=== PATIENT | male | born 1945 | race Hispanic/Latino ===

== ENCOUNTER → 2017-09-29 | Outpatient (CLI) | payer MEDICARE ==
[~2017-09-29] MED LIST: CEFEPIME-D1 GM/50 ML IVP; FLAGYL250 MG PO; HYDRALAZINE HCL25 MG PO; METFORMIN HCL850 MG PO; NICOTINE PATCH1 EAC5 TD; PANTOPRAZOLE SO40 MG PO; PLAVIX75 MG PO; SENNA8.6 M1 PO; SIMVASTATIN40 MG PO
--- NOTE | 2017-09-29 11:28 | Diagnostic Imaging Report ---
PROCEDURE:ABDOMINAL ULTRASOUND COMPARISON:None. INDICATIONS:DIABETES/HTN/ EPIGASTRIC PAIN TECHNIQUE: Drew-scale and color sonographic images were obtained of the abdomen in transverse and sagittal planes. FINDINGS: Liver: 11.8 cm in length in right midclavicular line. The echotexture is mildly increased. No masses. Main portal vein: 0.9 cm, hepatopetal flow Gallbladder: Present and is normal. No gallbladder wall thickening, calcified gallstone, or pericholecystic fluid. Common Bile Duct: 0.3 Sonographic Root's sign: Negative Right kidney: 10.4 cm in length. Left kidney: 9.7 cm in length. The echotexture is normal. No evidence of mass or hydronephrosis in either kidney. Spleen: 8.8 cm in length. The echotexture is normal. No evidence of mass. A splenule is present at the lower pole. Pancreas: The visualized portions are unremarkable. Inferior vena cava: Patent Aorta: Within normal limits Ascites: None CONCLUSION: Increased echotexture of the liver suggestive of hepatocellular dysfunction, most commonly steatosis. The remainder of the visualized abdomen is normal. Dictated by: Nick Salazar M.D. on 09/29/2017 at 11:38 Electronically approved by: Nick Salazar M.D. on 09/29/2017 at 11:38
== END ==
LOC: US 08:41
PROVIDERS: ATTEND Internal Medicine Gastroenterology
DX: R10.13 Epigastric pain (principal); E11.9 Type 2 diabetes mellitus without complications; I10 Essential (primary) hypertension; E66.9 Obesity, unspecified; Z71.3 Dietary counseling and surveillance
CPT/HCPCS: 76700

== ENCOUNTER → 2020-07-10 | Day surgery (SDC) | payer MEDICARE ==
[2020-07-05 14:03] LABS: BASOPHILS # (AUTO) 0.1 (0.0-0.1); EOSINOPHILS # (AUTO) 0.4 (0.0-0.4); EOSINOPHILS % 5.1 % (0.0-6.0); HEMATOCRIT 41.5 % (38.2-49.6); HEMOGLOBIN 13.9 g/dL (14.0-18.0); LYMPHOCYTES # (AUTO) 2.1 (1.0-3.2); LYMPHOCYTES % 29.8 % (18.0-39.1); MEAN CORPUSCULAR HEMOGLOBIN 31.7 pg (28-32); MEAN CORPUSCULAR HGB CONC 33.5 g/dL (31-35); MEAN CORPUSCULAR VOLUME 94.7 fL (81-99); MONOCYTES # (AUTO) 0.5 (0.2-0.8); MONOCYTES % 7.3 % (4.4-11.3); NEUTROPHILS % 56.5 % (38.7-80.0); PLATELET COUNT 143 x10e3/uL (140-360); RED BLOOD COUNT 4.38 x10e6/uL (4.3-5.7); RED CELL DISTRIBUTION WIDTH 13.3 % (11.7-14.4)
[2020-07-05 14:24] LABS: ALANINE AMINOTRANSFERASE 19 IU/L (0-55); ALBUMIN/GLOBULIN RATIO 1.7 (0.8-2.0); ALKALINE PHOSPHATASE 81 IU/L (40-150); BLOOD UREA NITROGEN 15 mg/dL (7-26); BUN/CREATININE RATIO 15 (6-25); CALCIUM 8.7 mg/dL (8.4-10.2); CARBON DIOXIDE 26 mmol/L (22-29); CHLORIDE 107 mmol/L (98-107); CREATININE, SERUM 1.02 mg/dL (0.72-1.25); EST GLOMERULAR FILTRATION RATE > 60 ML/MIN (60-); GLUCOSE 170 mg/dL (74-118); SODIUM 142 mmol/L (136-145)
[2020-07-10] VITALS (10 sets, daily range): BP systolic 142–174; BP diastolic 69–85
[~2020-07-10] VITALS: Ht 165.1 cm; Wt 79.4 kg
[~2020-07-10] MED LIST changes: +ALPRAZOLAM 0.5 MG TAB ONE; +ASPIRIN81 MG; +ATORVASTATIN CA20 MG PO; +DIPHENHYDRAMINE HCL 25 MG CAP ONE; +FAMOTIDINE20 MG PO; +FENTANYL CITRATE/PF 100MCG/2 ML INJ ONE; +GLIMEPIRIDE1 MG PO; +HEPARIN SOD/SOD CHLORIDE 2,000 ML ONE; +IOPAMIDOL 300MG/ML 100 ML INFUS..BTL IV ONE; +IOPAMIDOL 370 MG/ML 200 ML INFUS..BTL INJ ONE; +LABETALOL HCL 0 ML ONE; +LIDOCAINE HCL 2% LOCAL 20 ML VIAL ONE; +LISINOPRIL5 MG PO; +METFORMIN HCL500 MG PO; +METOCLOPRAMIDE10 MG PO; +MIDAZOLAM HCL 2 MG/2 ML VIAL ONE; +SODIUM CHLORIDE 0.9% 1000ML 1,000 ML ONE
== END | disposition home or self-care (01) ==
LOC: CATH LAB 10:05
PROVIDERS: ATTEND Internal Medicine Interventional Cardiology
DX: I25.118 Atherosclerotic heart disease of native coronary artery with other forms of angina pectoris (principal); I25.82 Chronic total occlusion of coronary artery; Z01.812 Encounter for preprocedural laboratory examination; Z20.828 Contact with and (suspected) exposure to other viral communicable diseases; I70.203 Unspecified atherosclerosis of native arteries of extremities, bilateral legs
CPT/HCPCS: 36415; 75630; 76937; 80053; 85025; 93458; C1769 ×3; J2001; J2250; J3010; J7030; Q9967 ×2; U0002; 99152; 99153

== ENCOUNTER 2024-07-02 09:37 | Emergency (ER) | payer MEDICARE ==
[~2024-07-02] VITALS: Ht 165.1 cm; Wt 79.4 kg
[~2024-07-02 09:37] MED LIST changes: -ALPRAZOLAM 0.5 MG TAB ONE; -DIPHENHYDRAMINE HCL 25 MG CAP ONE; -FENTANYL CITRATE/PF 100MCG/2 ML INJ ONE; -HEPARIN SOD/SOD CHLORIDE 2,000 ML ONE; -IOPAMIDOL 300MG/ML 100 ML INFUS..BTL IV ONE; -IOPAMIDOL 370 MG/ML 200 ML INFUS..BTL INJ ONE; -LABETALOL HCL 0 ML ONE; -LIDOCAINE HCL 2% LOCAL 20 ML VIAL ONE; -MIDAZOLAM HCL 2 MG/2 ML VIAL ONE; -SODIUM CHLORIDE 0.9% 1000ML 1,000 ML ONE; +ULTRAM 50MG50 MG PO
[2024-07-02 09:50] VITALS: PULSE 57; RESP 19; TEMP 97.7; O2SAT 100
[2024-07-02 10:33] LABS: BASOPHILS # (AUTO) 0.1 (0.0-0.1); BASOPHILS % 0.9 % (0.0-1.0); EOSINOPHILS # (AUTO) 0.2 (0.0-0.4); EOSINOPHILS % 3.7 % (0.0-6.0); HEMOGLOBIN 15.9 g/dL (14.0-18.0); LYMPHOCYTES # (AUTO) 1.6 (1.0-3.2); LYMPHOCYTES % 28.1 % (18.0-39.1); MEAN CORPUSCULAR HEMOGLOBIN 32.4 pg (28-32); MEAN CORPUSCULAR HGB CONC 33.1 g/dL (31-35); MONOCYTES # (AUTO) 0.4 (0.2-0.8); MONOCYTES % 7.2 % (4.4-11.3); NEUTROPHILS # (AUTO) 3.4 (2.1-6.9); NEUTROPHILS % 59.7 % (38.7-80.0); PLATELET COUNT 147 x10e3/uL (140-360); RED CELL DISTRIBUTION WIDTH 13.5 % (11.7-14.4)
[2024-07-02 10:45] LABS: BILIRUBIN,URINE NEGATIVE (NEGATIVE); CLARITY,URINE CLEAR (CLEAR); COLOR,URINE YELLOW (YELLOW); GLUCOSE, URINE NEGATIVE (NEGATIVE); KETONES,URINE NEGATIVE (NEGATIVE); LEUKOCYTE ESTERASE ,URINE NEGATIVE (NEGATIVE); NITRITE,URINE NEGATIVE (NEGATIVE); PH,URINE 7 (5 - 7); PROTEIN,URINE DIPSTICK 2+ (NEGATIVE); URINE UROBILINOGEN 0.2 mg/dL (0.2 - 1)
[2024-07-02 10:48] LABS: ALBUMIN/GLOBULIN RATIO 1.4 (0.8-2.0); ANION GAP 16.5 mmol/L (8-16); CREATININE, SERUM 1.3 mg/dL (0.72-1.25); INR 0.91; PROTHROMBIN TIME 12.8 seconds (11.9-14.5); TOTAL PROTEIN 6.8 g/dL (6.5-8.1)
[2024-07-02 10:49] LABS: PARTIAL THROMBOPLASTIN TIME 26.9 seconds (23.8-35.5)
[2024-07-02 10:50] LABS: POTASSIUM 5.5 mmol/L (3.5-5.1)
[2024-07-02 10:54] LABS: TROPONIN I 0.024 ng/mL (0-0.300)
[2024-07-02 10:57] LABS: BACTERIA,URINE RARE /HPF; EPITHELIAL CELLS,URINE RARE /LPF; RBC,URINE 0-5 /HPF (0-5); WBC,URINE (MAN) 0-5 /HPF (0-5)
[2024-07-02] MEDS ORDERED: IOPAMIDOL 370 MG/ML 100 ML INFUS..BTL INJ ONE (11:09)
[2024-07-02] MEDS: SODIUM CHLORIDE 0.9% 1000ML 1,000 ML IV ONE (11:53)
[2024-07-02 12:56] VITALS: BP 198/72
[2024-07-02] MEDS: NICARDIPINE 20MG/200ML PREMIX 200 ML IV SCH (12:56)
== END 2024-07-02 13:40 | disposition other institution (70) ==
LOC: ER 09:50
DX: S06.5X0A Traumatic subdural hemorrhage without loss of consciousness, initial encounter (principal); R07.89 Other chest pain; W06.XXXA Fall from bed, initial encounter; Y92.89 Other specified places as the place of occurrence of the external cause; R94.31 Abnormal electrocardiogram [ECG] [EKG]
CPT/HCPCS: 36415; 70450; 71260; 72125; 74177; 80053; 81001; 82550; 84484; 85025; 85610; 85730; 93005; 99284; J7030; Q9967

== ENCOUNTER → 2025-03-15 | Outpatient (REF) | payer MEDICARE | LOC: CARD 08:55 | PROVIDERS: ATTEND Internal Medicine Infectious Disease | DX: E11.621 Type 2 diabetes mellitus with foot ulcer (principal); L97.511 Non-pressure chronic ulcer of other part of right foot limited to breakdown of skin; S81.802A Unspecified open wound, left lower leg, initial encounter | CPT/HCPCS: 93922; 93925 ==

== ENCOUNTER → 2025-03-17 | Outpatient (RCR) | payer MEDICARE | END | disposition home or self-care (01) | LOC: WCC 03-10 15:30 | PROVIDERS: ATTEND Internal Medicine Infectious Disease | DX: E11.621 Type 2 diabetes mellitus with foot ulcer (principal); S81.802A Unspecified open wound, left lower leg, initial encounter; L97.511 Non-pressure chronic ulcer of other part of right foot limited to breakdown of skin; R60.0 Localized edema ==

== ENCOUNTER → 2025-03-22 | Outpatient (REF) | payer MEDICARE | LOC: RAD 11:06 | PROVIDERS: ATTEND Internal Medicine Infectious Disease | DX: E11.621 Type 2 diabetes mellitus with foot ulcer (principal); L97.511 Non-pressure chronic ulcer of other part of right foot limited to breakdown of skin; S81.802A Unspecified open wound, left lower leg, initial encounter ==

== ENCOUNTER → 2025-03-31 | Outpatient (REF) | payer MEDICARE | LOC: DX 11:58 | PROVIDERS: ATTEND Internal Medicine Infectious Disease | DX: Z45.2 Encounter for adjustment and management of vascular access device (principal); S81.802A Unspecified open wound, left lower leg, initial encounter | CPT/HCPCS: 36569; 71045 ==

== ENCOUNTER 2025-04-11 11:09 | Outpatient (RCR) | payer MEDICARE ==
[2025-03-24 16:04] LABS: BASOPHILS % 0.6 % (0.0-1.0); EOSINOPHILS % 4.1 % (0.0-6.0); LYMPHOCYTES % 22.1 % (18.0-39.1); MONOCYTES % 9.6 % (4.4-11.3); NEUTROPHILS % 63.1 % (38.7-80.0); RED CELL DISTRIBUTION WIDTH 13.5 % (11.7-14.4)
[2025-03-24 16:25] LABS: EST GLOMERULAR FILTRATION RATE 32.0 ML/MIN (>=60)
[2025-04-11] MEDS ORDERED: COLLAGENASE OINTMENT 30 GM TUBE ONE (12:33)
[2025-04-11] MEDS ORDERED: LIDOCAINE VISC 2% SOLN 15 ML UDC ONE (12:33)
[2025-04-11] MEDS ORDERED: SODIUM CHLORIDE 0.9% INJ 250 ML BAG ONE (12:33)
== END 2025-04-17 ==
LOC: WCC 11:09
PROVIDERS: ATTEND Internal Medicine Infectious Disease
DX: E11.621 Type 2 diabetes mellitus with foot ulcer (principal); S81.802A Unspecified open wound, left lower leg, initial encounter; L97.511 Non-pressure chronic ulcer of other part of right foot limited to breakdown of skin; R60.0 Localized edema
CPT/HCPCS: 36415; 80048; 83036; 84134; 85025; 87071; 87075; 87186; 87205; 97602 ×2; 99212 ×2; J7050

== ENCOUNTER 2025-05-12 14:29 | Outpatient (RCR) | payer MEDICARE | END 2025-05-17 | LOC: WCC 14:29 | PROVIDERS: ATTEND Internal Medicine Infectious Disease | DX: E11.621 Type 2 diabetes mellitus with foot ulcer (principal); M86.171 Other acute osteomyelitis, right ankle and foot; L97.511 Non-pressure chronic ulcer of other part of right foot limited to breakdown of skin; S81.802A Unspecified open wound, left lower leg, initial encounter; R60.0 Localized edema; A49.8 Other bacterial infections of unspecified site ==